=== PATIENT | female | born 1965 | race Caucasian/White ===

== ENCOUNTER 2016-08-30 00:14 | Emergency (ER) | payer OTHER ==
[2016-08-30 00:40] VITALS: RESP 18
[2016-08-30 02:07] LABS: Appearance,Urine Clear (Clear); Bilirubin,Urine Negative (Negative); Glucose,Urine (UA) Negative (Negative); Ketones,Urine Negative (Negative); Leukocyte Esterase,Urine Negative (Negative); Nitrite,Urine Negative (Negative); Protein,Urine Negative (Negative); Specific Gravity,Urine 1.012 (1.001-1.035); UA Billing (MACRO vs. MICRO) CHEM; Urobilinogen,Urine <2.0 mg/dL (<2.0)
--- NOTE | 2016-08-30 02:26 | ED ---
Female Urogenital HPI - General Chief complaint: Urogenital Stated complaint: Female Time Seen by Provider: 08/30/16 01:13 Source: patient, RN notes reviewed Mode of arrival: ambulatory Limitations: no limitations - History of Present Illness Initial comments: 51-year-old female presents emergency Department chief complaint bulging or vaginal region. Patient states this started a few days ago gotten worse. Patient states it comes and goes. Patient states when she bears down or sits that that'll help she notices it. Patient's had a prior hysterectomy and vaginal deliveries 3. Patient had a hysterectomy by Dr. Reece. Patient denies any abdominal pain. She states she has urinary frequency and some urinary incontinence which has been present for several years. Patient denies any vaginal bleeding or vaginal discharge. Patient offers no other complaints. - Related Data Home Medications Medication Instructions Recorded Confirmed Albuterol Inhaler [Ventolin Hfa 2 puff INHALATION RT-Q6H PRN 10/21/13 01/29/16 Inhaler] Levothyroxine Sodium [Synthroid] 125 mcg PO DAILY 03/14/14 01/29/16 Montelukast Sodium [Singulair] 10 mg PO HS 06/02/15 01/29/16 Albuterol Nebulized [Ventolin 2.5 mg INHALATION RT-Q6H PRN 01/27/16 01/29/16 Nebulized] Lacosamide [Vimpat] 200 mg PO BID 01/27/16 01/29/16 Venlafaxine HCl [Effexor XR] 75 mg PO DAILY 01/27/16 01/29/16 clonazePAM [KlonoPIN] 1 mg PO BID PRN 01/27/16 01/29/16 lamoTRIgine [LaMICtal] 200 mg PO BID 01/27/16 01/29/16 Previous Rx's Medication Instructions Recorded Ondansetron Odt [Zofran ODT] 4 mg PO Q8HR PRN #20 tab 01/28/16 Fluconazole [Diflucan] 100 mg PO DAILY #14 tablet 01/29/16 Nystatin 100,000 Unit/ml Susp 5 ml PO QID #280 ml 01/29/16 [Mycostatin Oral Susp] Omeprazole 20 mg PO BID #90 cap 01/29/16 Sucralfate [Carafate] 1 gm PO ACHS #120 tab 01/29/16 Allergies Allergy/AdvReac Type Severity Reaction Status Date / Time Sulfa (Sulfonamide Allergy Rash/Hives Verified 08/30/16 00:40 Antibiotics) Review of Systems ROS Statement: Those systems with pertinent positive or pertinent negative responses have been documented in the HPI. ROS Other: All systems not noted in ROS Statement are negative. Past Medical History Past Medical History: GERD/Reflux, Seizure Disorder Additional Past Medical History / Comment(s): HIATAL HERNIA, HX POLYPS, In the ER on 01-27-16 with vomiting and difficulty swallowing. History of Any Multi-Drug Resistant Organisms: None Reported Past Surgical History: Cholecystectomy, Hysterectomy Additional Past Surgical History / Comment(s): THYROIDECTOMY, Yvette Fundoplication. Past Anesthesia/Blood Transfusion Reactions: Postoperative Nausea & Vomiting ( PONV) Additional Past Anesthesia/Blood Transfusion Reaction / Comment(s): MOTHER - PONV Past Psychological History: Anxiety, Depression Smoking Status: Former smoker Past Alcohol Use History: None Reported Additional Past Alcohol Use History / Comment(s): Smokes 1 PPD since the age of 16. Past Drug Use History: None Reported - Past Family History Father Family Medical History: AFIB Additional Family Medical History / Comment(s): INTERMEITENT AFIB Mother Family Medical History: Hypertension, Thyroid Disorder General Exam Limitations: no limitations General appearance: alert, in no apparent distress Head exam: Present: atraumatic, normocephalic, normal inspection Respiratory exam: Present: normal lung sounds bilaterally. Absent: respiratory distress, wheezes, rales, rhonchi, stridor Cardiovascular Exam: Present: regular rate, normal rhythm, normal heart sounds. Absent: systolic murmur, diastolic murmur, rubs, gallop, clicks GI/Abdominal exam: Present: soft, normal bowel sounds. Absent: distended, tenderness, guarding, rebound, rigid External exam: Present: normal external exam, other (Exam performed with Mireille DESOUZA) Speculum exam: Present: other (Small area of bulging in the superior Aspect possible cystocele) By manual exam: Present: normal by manual exam Course Vital Signs 08/30/16 00:36 Temperature 97.1 F L Pulse Rate 92 Respiratory 18 Rate Blood Pressure 127/68 O2 Sat by Pulse 98 Oximetry Medical Decision Making - Medical Decision Making 51-year-old female presented for bulging or vaginal region. Patient most likely has a cystocele. Patient will follow-up with bilingual teacher. Return parameters were discussed. - Lab Data Lab Results 08/30/16 Range/Units 01:34 Urine Color Yellow Urine Appearance Clear (Clear) Urine pH 5.0 (5.0-8.0) Ur Specific [place] 1.012 (1.001-1.035) Urine Protein Negative (Negative) Urine Glucose (UA) Negative (Negative) Urine Ketones Negative (Negative) Urine Blood Negative (Negative) Urine Nitrite Negative (Negative) Urine Bilirubin Negative (Negative) Urine Urobilinogen <2.0 (<2.0) mg/dL Ur Leukocyte Esterase Negative (Negative) Disposition Clinical Impression: Cystocele Disposition: HOME SELF-CARE Condition: Stable Instructions: Cystocele (ED) Additional Instructions: Please return to the Emergency Department if symptoms worsen or any other concerns. Referrals: Tomas Oquendo MD [Primary Care Provider] - 1-2 days Ricardo Reece MD [STAFF PHYSICIAN] - 1-2 days Time of Disposition: 02:26
[2016-08-30 02:36] VITALS: BP 121/74; PULSE 80; TEMP 98
== END 2016-08-30 02:35 | disposition home or self-care (01) ==
LOC: EC 00:14
DX: N81.10 Cystocele, unspecified (principal); G40.909 Epilepsy, unspecified, not intractable, without status epilepticus; F32.9 Major depressive disorder, single episode, unspecified; F41.9 Anxiety disorder, unspecified; Z87.891 Personal history of nicotine dependence; Z79.899 Other long term (current) drug therapy; Z88.2 Allergy status to sulfonamides
CPT/HCPCS: 81003; 99283

== ENCOUNTER → 2017-02-04 | Outpatient (CLI) | payer OTHER | END | disposition home or self-care (01) | LOC: LABWHC1 10:29 | PROVIDERS: ATTEND Nurse Practitioner Women's Health | DX: E03.9 Hypothyroidism, unspecified (principal) | CPT/HCPCS: 36415; 84439; 84443 ==

== ENCOUNTER → 2017-08-21 | Outpatient (CLI) | payer OTHER ==
[2017-08-21 08:24] LABS: Basophils % (A) 1 %; Eosinophils # (A) 0.1 k/uL (0-0.7); Eosinophils % (A) 2 %; HCT 35.8 % (34.0-46.0); Lymphocytes # (A) 1.9 k/uL (1.0-4.8); Lymphocytes % (A) 28 %; MCH 28.7 pg (25.0-35.0); MCHC 33.6 g/dL (31.0-37.0); MCV 85.5 fL (80.0-100.0); Mean Platelet Volume 6.5; Monocytes # (A) 0.5 k/uL (0-1.0); Monocytes % (A) 7 %; Neutrophils # (A) 4.2 k/uL (1.3-7.7); Neutrophils % (A) 62 %; Platelet Count 278 k/uL (150-450); RBC 4.19 m/uL (3.80-5.40); RDW 12.9 % (11.5-15.5); WBC 6.7 k/uL (3.8-10.6)
[2017-08-21 08:40] LABS: Albumin 4.2 g/dL (3.5-5.0); Calcium 9.3 mg/dL (8.4-10.2); Potassium 4.4 mmol/L (3.5-5.1); Total Bilirubin 0.4 mg/dL (0.2-1.3); Total Protein 7.2 g/dL (6.3-8.2)
[2017-08-21 09:40] LABS: T4, Free (Free Thyroxine) 1.2 ng/dL (0.78-2.19)
--- NOTE | 2017-08-21 10:17 | NM ---
EXAMINATION TYPE: NM stress cardiolite complete DATE OF EXAM: 08/21/2017 COMPARISON: NONE HISTORY: Chest pain TECHNIQUE: After the intravenous administration of 10.22 mCi Tc 99m Sestamibi - Rest images obtained 45 minutes post injection. The patient exercised using a KEREN protocol and 1 minute prior to peak exercise was injected with 25.2 mCi Tc 99m Sestamibi - Stress images obtained 20 minutes post inject ion. FINDINGS: Targeted heart rate was achieved during performance of the study. Review of stress and rest SPECT miah ges demonstrates no distinct perfusion abnormality. Gated analysis shows normal wall motion with an estimated left ventricular ejection fraction of 67 %. IMPRESSION: No scintigraphic evidence for reversible ischemia
--- NOTE | 2017-08-21 11:07 | EST ---
EXERCISE STRESS DATE OF SERVICE: 08/21/2017 AGE: 52 SEX: Female HT: 64" WT: 200 pounds PROTOCOL: Cardiolite Kwadwo STAGE: II DURATION OF EXERCISE: 6:18 HEART RATE REST: 73 BLOOD PRESSURE REST: 109/73 MAXIMUM HEART RATE ACHIEVED: 143 MAXIMUM BLOOD PRESSURE: 180/90 85% MPHR: 144 100% MPHR: 169 METS: 7.5 INDICATIONS: Chest pain. CLINICAL INFORMATION: History of chest discomfort referred by Dr. Oquendo. Baseline heart rate 73 beats per minute. Baseline blood pressure 109/73 mmHg. Baseline 12-lead ECG showed normal sinus rhythm with early repolarization abnormality inferolaterally. The patient exercised on a Kwadwo protocol for 6 minutes 18 seconds achieving a peak heart rate of 143 beats per minute. Normal blood pressure response to exercise. There was no ECG evidence for ischemia. No arrhythmias were noted. Patient was short of breath at peak exercise. Nuclear portion will be reported separately. IMPRESSION: Average exercise capacity. Shortness of breath at peak exercise. No ECG evidence for ischemia or arrhythmias. MMODL / IJN: [id number] /
--- NOTE | 2017-08-21 11:47 | ECHOF ---
Referral Reason:R07.9 Chest Pain MEASUREMENTS -------- HEIGHT: 162.6 cm WEIGHT: 90.7 kg BP: 134/83 RVIDd: 2.8 cm (< 3.3) IVSd: 0.9 cm (0.6 - 1.1) LVIDd: 4.6 cm (3.9 - 5.3) LVPWd: 1.1 cm (0.6 - 1.1) IVSs: 1.5 cm LVIDs: 3.1 cm LVPWs: 1.5 cm LA Diam: 3.3 cm (2.7 - 3.8) LAESV Index (A-L): 25.31 ml/m Ao Diam: 2.8 cm (2.0 - 3.7) AV Cusp: 1.9 cm (1.5 - 2.6) MV EXCURSION: 14.881 mm (> 18.000) MV EF SLOPE: 79 mm/s (70 - 150) EPSS: 0.6 cm MV E Darinel: 0.79 m/s MV DecT: 261 ms MV A Darinel: 0.74 m/s MV E/A Ratio: 1.06 FINDINGS -------- Sinus rhythm. This was a technically good study. The left ventricular size is normal. There is borderline concentric left ventricular hypertrophy. Overall left ventricular systolic function is normal with, an EF between 55 - 60 %. The right ventricle is normal in size. Normal LA size by volume 22+/-6 ml/m2. The right atrium is normal in size. The aortic valve is trileaflet and appears structurally normal. The mitral valve is normal. The tricuspid valve appears structurally normal. Trace/mild (physiologic) pulmonic regurgitation. The aortic root size is normal. Normal inferior vena cava with normal inspiratory collapse consistent with estimated right atrial pre ssure of 5 mmHg. There is no pericardial effusion. CONCLUSIONS -------- 1. Sinus rhythm. 2. This was a technically good study. 3. The left ventricular size is normal. 4. There is borderline concentric left ventricular hypertrophy. 5. Overall left ventricular systolic function is normal with, an EF between 55 - 60 %. 6. The right ventricle is normal in size. 7. Normal LA size by volume 22+/-6 ml/m2. 8. The right atrium is normal in size. 9. The aortic valve is trileaflet and appears structurally normal. 10. The mitral valve is normal. 11. The tricuspid valve appears structurally normal. 12. Trace/mild (physiologic) pulmonic regurgitation. 13. The aortic root size is normal. 14. Normal inferior vena cava with normal inspiratory collapse consistent with estimated right atrial pressure of 5 mmHg. 15. There is no pericardial effusion. HAND SPLITTER: Kelsi Warren RDCS
== END | disposition home or self-care (01) ==
LOC: RADNMMAIN 07:35
PROVIDERS: ATTEND Family Medicine
DX: R07.9 Chest pain, unspecified (principal); R06.02 Shortness of breath; G40.89 Other seizures; F41.1 Generalized anxiety disorder
CPT/HCPCS: 93017; 93306; 84439; 80061; 80053; 84443; 85025; 78452; 36415; A9500

== ENCOUNTER → 2018-06-04 | Outpatient (CLI) | payer OTHER ==
[2018-06-04 17:51] LABS: Basophils # (A) 0.1 k/uL (0-0.2); Basophils % (A) 0 %; Eosinophils # (A) 0.2 k/uL (0-0.7); Eosinophils % (A) 1 %; HCT 36.5 % (34.0-46.0); HGB 12.2 gm/dL (11.4-16.0); Lymphocytes # (A) 2.1 k/uL (1.0-4.8); Lymphocytes % (A) 19 %; MCH 29.6 pg (25.0-35.0); MCHC 33.4 g/dL (31.0-37.0); MCV 88.6 fL (80.0-100.0); Mean Platelet Volume 6.3; Monocytes # (A) 0.6 k/uL (0-1.0); Monocytes % (A) 5 %; Neutrophils % (A) 72 %; Platelet Count 256 k/uL (150-450); RBC 4.12 m/uL (3.80-5.40); RDW 13.4 % (11.5-15.5); WBC 11.1 k/uL (3.8-10.6)
--- NOTE | 2018-06-04 19:03 | XR ---
EXAMINATION TYPE: XR chest 2V DATE OF EXAM: 06/04/2018 COMPARISON: 08/12/2013 HISTORY: Cough and chest pain TECHNIQUE: Frontal and lateral views of the chest are obtained. FINDINGS: Heart and mediastinum are normal. Lungs are clear. Diaphragm is normal. There is left axil mere implanted device noted. There is no pleural effusion. Bony thorax appears intact. IMPRESSION: No active cardiopulmonary disease. Normal heart. No change.
[2018-06-05 03:45] LABS: Albumin 4.6 g/dL (3.80-4.90); Albumin/Globulin Ratio 1.92 (1.20-2.10); Anion Gap 11.2 mmol/L (4.00-12.00); Calcium 8.9 mg/dL (8.7-10.3); Carbon Dioxide 26.8 mmol/L (21.6-31.8); Globulin 2.4 g/dL (1.6-3.3); Potassium 4.4 mmol/L (3.5-5.5); Total Bilirubin 0.3 mg/dL (0.2-1.2)
== END | disposition home or self-care (01) ==
LOC: LABWHC1 17:06
PROVIDERS: ATTEND Family Medicine
DX: R07.89 Other chest pain (principal); E03.9 Hypothyroidism, unspecified; F41.1 Generalized anxiety disorder
CPT/HCPCS: 36415; 71046; 80053; 84439; 84443; 84481; 85025; 93005

== ENCOUNTER → 2024-08-27 | Outpatient (CLI) | payer OTHER ==
[2024-08-27 12:39] LABS: Appearance,Urine Clear (Clear); Bilirubin,Urine Negative (Negative); Blood,Urine Negative (Negative); Color,Urine Light Yellow; Glucose,Urine (UA) Negative (Negative); Ketones,Urine Negative (Negative); Leukocyte Esterase,Urine Large (Negative); Mucus,Urine Rare /hpf; Nitrite,Urine Negative (Negative); Protein,Urine Negative (Negative); RBC,Urine 1 /hpf (0-5); Specific Gravity,Urine 1.014 (1.001-1.035); Squamous Epithelial Cell,Urine <1 /hpf (0-4); Urobilinogen,Urine <2.0 mg/dL (<2.0); WBC,Urine 14 /hpf (0-5)
[2024-08-27 15:32] LABS: Basophils # (A) 0.04 X 10*3/uL (0.00-0.10); Basophils % (A) 0.6 %; Eosinophils # (A) 0.07 X 10*3/uL (0.04-0.35); Eosinophils % (A) 1.1 %; HCT 37.4 % (37.2-46.3); HGB 12.4 g/dL (12.0-15.0); Lymphocytes # (A) 1.92 X 10*3/uL (0.90-5.00); Lymphocytes % (A) 30.7 %; MCH 29.7 pg (27.0-32.0); MCHC 33.2 g/dL (32.0-37.0); MCV 89.5 FL (80.0-97.0); Mean Platelet Volume 9.3 FL (9.5-12.2); Monocytes # (A) 0.45 X 10*3/uL (0.20-1.00); Monocytes % (A) 7.2 %; NRBC Per 100 WBC 0 X 10*3/uL (0.00-0.01); Neutrophils # (A) 3.76 X 10*3/uL (1.80-7.70); Neutrophils % (A) 60.2 %; Platelet Count 201 X 10*3/uL (140-440); RBC 4.18 X 10*6/uL (4.10-5.20); RDW 12.4 % (11.5-14.5); WBC 6.25 X 10*3/uL (4.50-10.00)
[2024-08-27 15:46] LABS: ALT 15 U/L (8-44); AST 19 U/L (13-35); Albumin 4.2 g/dL (3.8-4.9); Alkaline Phosphatase 104 U/L (41-126); BUN/Creat Ratio 10.54 Ratio (12.00-20.00); Blood Urea Nitrogen 13.7 mg/dL (9.0-27.0); Calcium 8.9 mg/dL (8.7-10.3); Carbon Dioxide 27.4 mmol/L (21.6-31.8); Chloride 108 mmol/L (96-109); Chol/HDL Ratio 3.97 Ratio; Globulin 2.8 g/dL (1.6-3.3); Glucose 108 mg/dL (70-110); Magnesium 2.7 mg/dL (1.5-2.4); Phosphorus 2.2 mg/dL (2.4-5.1); Potassium 4.3 mmol/L (3.5-5.5); Sodium 144 mmol/L (135-145); T4, Free (Free Thyroxine) 0.98 ng/dL (0.80-1.80); Total Bilirubin 0.3 mg/dL (0.3-1.2)
== END | disposition home or self-care (01) ==
LOC: LABWHC1 11:29
PROVIDERS: ATTEND Student in an Organized Health Care Education/Training Program
DX: E03.9 Hypothyroidism, unspecified (principal); N18.32 Chronic kidney disease, stage 3b; E55.9 Vitamin D deficiency, unspecified
CPT/HCPCS: 36415; 80053; 80061; 81001; 82043; 82306; 82570; 82607; 83735; 84100; 84439; 84443; 85025